=== PATIENT | female | born 2000 | race Caucasian/White ===

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

== ENCOUNTER 2019-01-28 18:37 | Emergency (ER) | payer SELFPAY ==
[2018-08-08 11:06] VITALS: BMI 15.3
[2019-01-28 18:38] VITALS: BP 107/76; PULSE 85; RESP 16; TEMP 36.6; O2SAT 97; BMI 15.6
--- NOTE | 2019-01-29 00:17 | ED.RN ---
PT'S NAME CALLED ON THREE DIFFERENT OCCASIONS. PT WAS NO PRESENT AND DID NOT SPEAK WITH ANY NURSING STAFF PRIOR TO LEAVING
== END 2019-01-28 19:45 | disposition left against medical advice (07) ==
LOC: ED 21:59
PROVIDERS: Emergency Provider Emergency Medicine
DX: R69 Illness, unspecified (principal); Z53.21 Procedure and treatment not carried out due to patient leaving prior to being seen by health care provider

== ENCOUNTER → 2022-06-19 | Outpatient (CLI) | payer MEDICAID, SELFPAY ==
[2022-06-23 22:06] LABS: Chlamydia By Nucleic Acid AMP Negative (Negative)
[2022-06-24 08:57] LABS: Gonococcus By Nucleic Acid AMP Negative (Negative)
[2022-06-26 21:02] LABS: HPV Reflexed? NOT INDICATED
== END | disposition home or self-care (01) ==
LOC: LABSPEC 13:27
PROVIDERS: Referring Provider Obstetrics & Gynecology; Visit Provider Obstetrics & Gynecology
DX: O09.90 Supervision of high risk pregnancy, unspecified, unspecified trimester (principal); Z3A.00 Weeks of gestation of pregnancy not specified; Z12.4 Encounter for screening for malignant neoplasm of cervix
CPT/HCPCS: 87086; 87088; 87491; 87591; 88175; G0145

== ENCOUNTER → 2022-07-16 | Outpatient (CLI) | payer MEDICAID, SELFPAY ==
[2022-07-16 15:08] LABS: Absolute Lymphocyte Count 1.57 X10^3/uL (0.83-4.51); Absolute Neutrophil Count 6.7 X10^3/uL (2.0-7.7); Basophil# 0.05 X10^3/uL; Basophil% 0.5 % (0-1); Eosinophil# 0.36 X10^3/uL; Eosinophils% 3.9 % (0-5); Hematocrit 40.3 % (37-47); Hemoglobin 13.5 g/dL (12.0-15.0); Lymphocyte # 1.57 X10^3/ul (0.83-4.51); Lymphocyte % 16.9 % (19-41); Mean Corp Hgb Conc 33.5 g/dL (32-36); Mean Corpuscular Hgb 31.7 pg (27.0-32.0); Mean Corpuscular Volume 94.6 fL (81-99); Mean Platelet Vol. 11.8 fl (6.2-12.0); Monocyte# 0.53 X10^3/uL; Monocyte% 5.7 % (0-10); NRBC Flagged by Analyzer 0 % (0-5); Neutrophil # 6.72 X10^3/uL (2.7-7.7); Neutrophil % 72.2 % (47-70); Platelet Count 209 K/mm3 (150-450); RBC Distribution Width CV 12.4 % (11.6-14.6); RBC Distribution Width SD 43.1 fl (35.1-43.9); Red Blood Count 4.26 M/mm3 (4.2-5.4); White Blood Count 9.3 K/mm3 (4.4-11.0)
[2022-07-16 15:51] LABS: NATERA MAILED SPECIMEN
[2022-07-16 17:26] LABS: HIV - WCH Non-Reactive (Nonreactive); Hepatitis B Surface Antigen Non-Reactive (Nonreactive); Hepatitis C Antibody Non-Reactive (Nonreactive); Rubella IgG Reactive (Nonreactive); Syphilis Antibodies Non-reactive
== END | disposition home or self-care (01) ==
LOC: PAVLAB 14:43
PROVIDERS: Referring Provider Obstetrics & Gynecology; Visit Provider Obstetrics & Gynecology
DX: O09.90 Supervision of high risk pregnancy, unspecified, unspecified trimester (principal); Z3A.00 Weeks of gestation of pregnancy not specified
CPT/HCPCS: 36415; 85025; 86703; 86762; 86780; 86803; 86850; 86900; 86901; 87340

== ENCOUNTER 2022-09-04 12:32 | Emergency (ER) | payer MEDICAID, SELFPAY ==
[2022-09-04 12:33] VITALS: BP 124/85; PULSE 114; RESP 18; TEMP 35.9; O2SAT 100; BMI 18.4
[2022-09-04 13:13] VITALS: BP 141/94; PULSE 90; RESP 16; O2SAT 99
--- NOTE | 2022-09-04 13:18 | EDS_ITS ---
HPI History of Present Illness Chief Complaint: Syncope Informant: patient Narrative Narrative: Patient presents after a syncopal episode at work. Patient states she stood up quickly. She started to feel lightheaded. She states this happens to her all the time. This happened before she was even . But today it progressed further. She states she started to lose her vision and hearing and then evidently passed out. She feels fine now. She does not have chest pain. She is not dyspneic now. She has not been coughing. She has been getting some muscle cramps in her legs and feet. She denies any known medical history. She is G1, P0 currently at 20 weeks . No bleeding discharge or pelvic or abdominal symptoms. She does have a history of what sounds like a congenital cardiomyopathy that her mother and sister have both had. Her sister is 31 and actually has a pacer ICD. Patient has played sports in high school and never had any symptoms. She has never had an echocardiogram or cardiac evaluation. She states for the last few days she has just been a little bit more tired than normal but no fevers chills or specific symptomatology. No recent travel, surgery, immobilization, personal or family history of DVT or PE. See family history as above. 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 Surgical History History of tonsillectomy Social History adopted: No household members: significant other and family housing: house current occupational status: employed current occupation: [employer] current occupational exposures/hazards: No pets and animals: Yes (BF doing litter box) pets and animals: cat(s) and dog(s) history of recent travel: No Smoking Status: Former smoker Electronic Cigarette Use: without nicotine alcohol intake: never substance use type: does not use well-balanced diet: daily or most days caffeine: No eating out: 1-3 times/week seatbelt use: always do you feel safe at home: Yes additional social history: -Sarbjit Father-Ezio BHARDWAJ ROS ED ROS Narrative A complete review of systems was performed and is negative except as documented in the history of present illness. Some specific details below. Constitutional: No recent fevers or chills. She has had some mild malaise EYE: No discharge, visual complaints, or pain. She started to have graying of vision prior to syncope but no other time. ENT: No difficulty swallowing. No swelling. No pain. No reflux symptoms. CV: No chest pain or palpitations. Respiratory: No shortness of breath coughing or hemoptysis. GI: No abdominal pain. No nausea vomiting diarrhea. No blood in stool. : No frequency dysuria or hematuria. Musculoskeletal: No recent trauma. No swelling. She does have some intermittent cramping of legs and feet. It is equal on both sides Skin: No rash. Nondiaphoretic. Neuro: No weakness or numbness. Endocrine: No polyuria or polydipsia. EXAM Physical Exam Narrative Exam Narrative: CONSTITUTIONAL: Patient is nontoxic in appearance. The patient looks comfortable. Work of breathing looks normal. HEENT: No notable trauma. Mucous membranes do look moist. No sinus tenderness. EYES: No conjunctival injection. No proptosis. NECK:No JVD. No stridor. CARDIOVASCULAR: Regular rate. Regular rhythm. No notable murmur. No JVD. Her rate is about 90 on the monitor appears to be normal sinus rhythm. RESPIRATORY: No respiratory distress. Breathing is unlabored. No wheezes. No rhonchi. No rales. No pain with a deep breath. No chest wall tenderness. GASTROINTESTINAL: Not distended. Bowel sounds are normal. No tenderness. No guarding. No rebound. Palpable uterus right at the umbilicus as expected for dates. It is not tender. GENITOURINARY: No tenderness over the bladder. No CVA tenderness. MUSCULOSKELETAL: Atraumatic. No peripheral edema. No cord. No tenderness along the deep venous system. No asymmetry. No distended veins. Very normal peripheral exam. NEUROLOGICAL: Patient is alert and appropriate. No focal deficit noted. SKIN: No noted rashes. No diaphoresis. PSYCHIATRIC: Patient is calm. Mood is appropriate. Const Vital Signs: 09/04/22 12:33 09/04/22 13:13 09/04/22 13:13 Temperature 96.7 F L Temperature Source Temporal Pulse Rate 114 H 90 Respiratory Rate 18 16 Respiratory Effort Normal Non-Labored Respiratory Pattern Normal Blood Pressure 124/85 H 141/94 H Blood Pressure Mean 98 109 Pulse Ox 100 99 Oxygen Delivery Method Room Air Room Air MDM MDM MDM Narrative Medical decision making narrative: Patient CBC shows nonspecific mild elevation of the white count at 11.4 which is actually typical for somebody at 20 weeks gestation. She is not anemic. Platelets are normal. Electrolytes show no marked abnormalities. No sign of significantly elevated glucose or kidney discharge function. Troponin is unmeasurable at less than 3. As the patient is asymptomatic, has a normal exam, normal EKG, normal blood work I think she can go home. I did discuss the case with her industrial painter, Dr. Castillo. We agreed that the patient likely needs follow-up. With possibly benefit from echocardiogram. Certainly return if this becomes a recurrent phenomenon. Lab Data Attestation: I reviewed the patient's lab results. Labs: Laboratory Results - last 24 hr 09/04/22 09/04/22 13:20 13:20 WBC 11.4 H RBC 4.10 L Hgb 13.5 Hct 39.0 MCV 95.1 MCH 32.9 H MCHC 34.6 RDW Std Deviation 45.2 H RDW Coeff of Quan 13.0 Plt Count 196 MPV 11.4 Immature Gran % (Auto) 1.800 H Neut % (Auto) 74.8 H Lymph % (Auto) 14.3 L [place] % (Auto) 5.2 Eos % (Auto) 3.3 Baso % (Auto) 0.6 Absolute Neuts (auto) 8.5 H Absolute Lymphs (auto) 1.63 Nucleated RBC % 0 Sodium 137 Potassium 3.9 Chloride 106 Carbon Dioxide 25.0 Anion Gap 6 BUN 8 Creatinine 0.48 L Estim Creat Clear Calc 149.32 Est GFR (MDRD) Af Amer 208 Est GFR (MDRD) Non-Af 172 BUN/Creatinine Ratio 16.8 Glucose 84 Calcium 8.9 Troponin I High Sens < 3 L EKG Initial EKG: Comments: My independent interpretation of the patient's EKG done for report of syncope shows a normal sinus rhythm with a rate of 93. No ectopy. No acute ST elevation or depression. No preexcitation. ID interval, QRS duration and QTc are all within normal limits. Management Discussion w/another healthcare provider: PCP Discharge Plan Triage Chief Complaint: Syncope Other Complaint: ED Provider: German Diaz Dx/Rx/DC Orders Clinical Impression: Syncope, Instructions: ED Fainting, Uncertain Cause Prescriptions: No Action albuterol sulfate 2.5 mg /3 mL (0.083 %) solution for nebulization 2.5 mg continuous nebulization ONCE Qty: 1 0RF DHA 200 mg capsule PO Primary Care Provider: Care Physician,No Primary Referrals: Carl Fletcher MD [Med Staff - Active Staff] - As soon as possible Mary Castillo MD [Med Staff - Active Staff] - Keep Emir appointment Care Physician,No Primary [Primary Care Provider] - Disposition Disposition: Home, Self Care
[2022-09-04] MEDS: 0.9% Normal Saline 1,000 ML 1000 ML IV (13:22)
--- NOTE | 2022-09-04 13:25 | NURSING ---
NO OLD EKGS
[2022-09-04 13:32] LABS: Absolute Lymphocyte Count 1.63 X10^3/uL (0.83-4.51); Absolute Neutrophil Count 8.5 X10^3/uL (2.0-7.7); Basophil# 0.07 X10^3/uL; Basophil% 0.6 % (0-1); Eosinophil# 0.38 X10^3/uL; Eosinophils% 3.3 % (0-5); Hemoglobin 13.5 g/dL (12.0-15.0); Lymphocyte # 1.63 X10^3/ul (0.83-4.51); Lymphocyte % 14.3 % (19-41); Mean Corp Hgb Conc 34.6 g/dL (32-36); Mean Corpuscular Hgb 32.9 pg (27.0-32.0); Mean Corpuscular Volume 95.1 fL (81-99); Mean Platelet Vol. 11.4 fl (6.2-12.0); Monocyte# 0.59 X10^3/uL; Monocyte% 5.2 % (0-10); NRBC Flagged by Analyzer 0 % (0-5); Neutrophil # 8.49 X10^3/uL (2.7-7.7); Neutrophil % 74.8 % (47-70); Platelet Count 196 K/mm3 (150-450); RBC Distribution Width SD 45.2 fl (35.1-43.9); White Blood Count 11.4 K/mm3 (4.4-11.0)
[2022-09-04 13:46] LABS: Anion Gap 6 (5-15); BUN 8 mg/dL (7-18); BUN/Creat Ratio 16.8 RATIO (10-20); Calcium,Total 8.9 mg/dL (8.5-10.1); Chloride 106 mmol/L (98-107); Creatinine, Serum 0.48 mg/dL (0.55-1.02); EST Glomerular Filtration Rate 172 mL/min (>60); Est Glom Filt Rate - Afr Amer 208 mL/min (>60); Estimated Creatinine Clearance 149.32 ml/min; Glucose 84 mg/dL (74-106); Potassium 3.9 mmol/L (3.5-5.1); Sodium Level 137 mmol/L (136-145); Troponin-I HS < 3 pg/mL (3.0-54.0)
== END 2022-09-04 15:08 | disposition home or self-care (01) ==
PROVIDERS: Emergency Provider Emergency Medicine; Visit Provider Emergency Medicine
DX: O99.891 Other specified diseases and conditions complicating pregnancy (principal); R55 Syncope and collapse; Z79.899 Other long term (current) drug therapy; Z87.891 Personal history of nicotine dependence; Z3A.20 20 weeks gestation of pregnancy
CPT/HCPCS: 80048; 84484; 85025; 93005; 96360; 96361; 99285; J7030; A4216

== ENCOUNTER → 2022-09-09 | Outpatient (CLI) | payer MEDICAID, SELFPAY | END | disposition home or self-care (01) | PROVIDERS: Referring Provider Advanced Practice Midwife; Visit Provider Advanced Practice Midwife | DX: Z36.9 Encounter for antenatal screening, unspecified (principal) | CPT/HCPCS: 36415 ==

== ENCOUNTER → 2022-10-28 | Outpatient (CLI) | payer MEDICAID, SELFPAY ==
[2022-10-28 10:51] LABS: Absolute Lymphocyte Count 1.35 X10^3/uL (0.83-4.51); Absolute Neutrophil Count 6.6 X10^3/uL (2.0-7.7); Basophil# 0.07 X10^3/uL; Basophil% 0.8 % (0-1); Eosinophil# 0.25 X10^3/uL; Eosinophils% 2.8 % (0-5); Hematocrit 37.7 % (37-47); Hemoglobin 12.7 g/dL (12.0-15.0); Lymphocyte # 1.35 X10^3/ul (0.83-4.51); Lymphocyte % 15.1 % (19-41); Mean Corp Hgb Conc 33.7 g/dL (32-36); Mean Corpuscular Hgb 32.1 pg (27.0-32.0); Mean Corpuscular Volume 95.2 fL (81-99); Mean Platelet Vol. 11.5 fl (6.2-12.0); Monocyte% 4.5 % (0-10); NRBC Flagged by Analyzer 0 % (0-5); Neutrophil # 6.64 X10^3/uL (2.7-7.7); Neutrophil % 74.2 % (47-70); Platelet Count 183 K/mm3 (150-450); RBC Distribution Width CV 12.1 % (11.6-14.6); RBC Distribution Width SD 42.5 fl (35.1-43.9); Red Blood Count 3.96 M/mm3 (4.2-5.4); White Blood Count 8.9 K/mm3 (4.4-11.0)
[2022-10-28 10:58] LABS: Glucose Challenge Gest 1H 50g 172 mg/dL (70-140)
[2022-10-28 11:32] LABS: HIV - WCH Non-Reactive (Nonreactive); Syphilis Antibodies Non-reactive
== END | disposition home or self-care (01) ==
LOC: PAVLAB 10:29
PROVIDERS: Advanced Practice Midwife; Referring Provider Obstetrics & Gynecology; Visit Provider Obstetrics & Gynecology
DX: O09.90 Supervision of high risk pregnancy, unspecified, unspecified trimester (principal); Z3A.00 Weeks of gestation of pregnancy not specified
CPT/HCPCS: 36415; 82950; 85025; 86703; 86780

== ENCOUNTER → 2022-11-04 | Outpatient (CLI) | payer MEDICAID, SELFPAY ==
[2022-11-04 10:52] LABS: Glucose GTT- Fasting 84 mg/dL (74-106)
[2022-11-04 11:34] LABS: Glucose GTT- 1 Hour 149 mg/dL (120-170)
[2022-11-04 12:24] LABS: Glucose GTT- 2 Hour 118 mg/dL (70-120)
[2022-11-04 13:53] LABS: Glucose GTT- 3 Hour 90 mg/dL (74-106)
== END | disposition home or self-care (01) ==
LOC: LAB 09:45
PROVIDERS: Referring Provider Nurse Practitioner Women's Health; Visit Provider Nurse Practitioner Women's Health
DX: Z13.1 Encounter for screening for diabetes mellitus (principal)
CPT/HCPCS: 36415; 82951; 82952

== ENCOUNTER 2022-12-26 17:09 | Outpatient (CLI) | payer MEDICAID, SELFPAY ==
[2022-12-26 17:23] VITALS: BP 127/82; PULSE 101; O2SAT 97
[2022-12-26 17:30] VITALS: TEMP 36.7
[2022-12-26 17:31] VITALS: BMI 20.5
[2022-12-26 17:38] LABS: Color, Urine Yellow (Yellow); Glucose, Dipstick Normal (Normal); Ketone-Dipstick Negative (Negative); Leukocyte Esterase-Dipstick 100 /ul (Negative); Nitrite-Dipstick Negative (Negative); Occult Blood-Urine Negative /ul (Negative); Protein-Dipstick Negative (Negative); Urine Bilirubin Dipstick Negative (Negative); Urine Clarity Sl. Cloudy (Clear); Urine Urobilinogen Normal (Normal); Urine pH 6.5 (5.0 - 8.0)
[2022-12-26 20:05] VITALS: TEMP 37.1
[2022-12-26 20:08] VITALS: BP 136/81; PULSE 85
--- NOTE | 2022-12-27 11:21 | OB.TRI.HP_ITS ---
HPI - General General Date of Admission: 12/26/22 Date of Service: 12/26/22 Chief Complaint: contractions HPI Narrative ANAYA HANNA, is a 22 F who presents at 36.1 with contractions since 130 that progressively became more uncomfortable. VE per nursing /-2. no lof/vb. good movement. some note of increased urinary frequency uncomplicated antentatal history Maternal Data Information NOAH Calculator Estimated Delivery Date Method Current WG Current Estimate 01/22/23 LMP (Certain) 36w 2d PFSH PFSH Medical History Migraines Home Medications albuterol sulfate 2.5 mg/3 mL (0.083 %) solution for nebulization 2.5 mg (3 mL) continuous nebulization ONCE #1 mL 06/21/20 [Clinic Last Taken Unknown] docosahexaenoic acid 200 mg capsule ( DHA) mg PO 06/12/22 [History Last Taken 12/25/22 21:30 200 mg] famotidine 20 mg tablet (Pepcid) 40 mg PO DAILY 12/26/22 [History Last Taken 12/25/22 21:30 40 mg] Allergy/AdvReac Type Severity Reaction Status Date / Time No Known Allergies Allergy Verified 12/26/22 17:29 Family History Mother Breast cancer, Onset Age: 36 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 Surgical History History of tonsillectomy Social History adopted: No household members: significant other and family housing: house current occupational status: employed current occupation: [employer]- [employer] current occupational exposures/hazards: No pets and animals: Yes (KATLIN doing litter box) pets and animals: cat(s) and dog(s) history of recent travel: No Smoking Status: Former smoker Electronic Cigarette Use: without nicotine alcohol intake: never substance use type: does not use well-balanced diet: daily or most days caffeine: No eating out: 1-3 times/week seatbelt use: always do you feel safe at home: Yes additional social history: KATLIN-Sarbjit Father-Ezio History 1 Elective abortions Hx Para Spontaneous abortions Hx # Term Pregnancies Ectopic pregnancies Hx # Pregnancies Multiple births # of living children Visit Details Expected Delivery Route/Plan Labor Preferences- CB/BF classes: encouraged labor support person: Sarbjit labor intervention preferences: [] pain management options preferred: epidural cut cord/dad catch: cord : yes PP control planned: discussed discussed possible routes of delivery and associated risks: [] special requests: [] Plans Covid status: unvacinated Flu vaccine: declines Tdap vaccine: declines Rhogam: na LARC form signed: yes Problem list reviewed and updated with the most current plan of care details and appropriate orders placed. Relevant counseling for the gestational age provided. Continue routine care and follow up unless otherwise noted in visit notes/problem list details OB Flowsheet Initial Weight: 104 lb Date -?-?-?-?-?-?-?-?-?--?-?-?- EGA Weight BP Urine Prot -?-?-?-?-?-?-?-?-?-?-?-?- Glucose FHR FuHt Pres Dilation -?-?-?-?-?-?-?-?-?-?-?-?- Effaced St Visit Note 06/19/22 -?-?-?-?-?-?-?-?-?-?-?-?- 9w 0d 104 lb 6 oz (+6 oz) 134/78 -?-?-?-?-?-?-?-?-?-?-?-?- 170 -?-?-?-?-?-?-?-?-?-?-?-?- SM- CRL 1.85 cm cons with LMP 07/16/22 -?-?-?-?-?-?-?-?-?-?-?-?- 12w 6d 106 lb 6 oz (+2 lb 6 oz) 114/75 Negative -?-?-?-?-?-?-?-?-?-?-?-?- Negative 168 -?-?-?-?-?-?-?-?-?-?-?-?- MH-No VB. Br US confirm live IUP. PN labs today 08/13/22 -?-?-?-?-?-?-?-?-?-?-?-?- 16w 6d 112 lb 2 oz (+8 lb 2 oz) 126/72 Negative -?-?-?-?-?-?-?-?-?-?-?-?- Negative 154 -?-?-?-?-?-?-?-?-?-?-?-?- JV- no lof, vagi nal bleeding, or cramping. no complaints. 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 no lof/ vb/ctx. anatomy reviewed. AFP ordered. 10/14/22 -?-?-?-?-?-?-?-?-?-?-?-?- 25w 5d 121 lb 4 oz (+17 lb 4 oz) 115/75 Negative -?-?-?-?-?-?-?-?-?-?-?-?- Negative 150 26 -?-?-?-?-?-?-?-?-?-?-?-?- KW- +FM. no lof/ vb/ctx. Pepcid ordered for acid reflux. 28 week labs ordered. 10/28/22 -?-?-?-?-?-?-?-?-?-?-?-?- 27w 5d 123 lb 8 oz (+19 lb 8 oz) 114/72 Negative -?-?-?-?-?-?-?-?-?-?-?-?- Negative 158 27 -?-?-?-?-?-?-?-?-?-?-?-?- MH-Good FM. No V B, LOF. Good FM. Pepcid helped. 28 wk labs, [facility] 11/10/22 -?-?-?-?-?-?-?-?-?-?-?-?- 29w 4d 125 lb 2 oz (+21 lb 2 oz) 114/82 Negative -?-?-?-?-?-?-?-?-?-?-?-?- Negative 143 29 -?-?-?-?-?-?-?-?-?-?-?-?- LC- no vb/ctx/lo f. good fm. passed 3 hour glucose.declines tdap. 11/24/22 -?-?-?-?-?-?-?-?-?-?-?-?- 31w 4d 129 lb (+25 lb) 132/60 -?-?-?-?-?-?-?-?-?-?-?-?- 150 31 Cephalic -?-?-?-?-?-?-?-?-?-?-?-?- SM- no vb lof go od fm no reuglar ctx 12/09/22 -?-?-?-?-?-?-?-?-?-?-?-?- 33w 5d 127 lb 8 oz (+23 lb 8 oz) 114/82 -?-?-?-?-?-?-?-?-?-?-?-?- 148 33 -?-?-?-?-?-?-?-?-?-?-?-?- MH-No VB, LOF. G ood FM. Occa BH CTX. Denies concerns 12/23/22 -?-?-?-?-?-?-?-?-?-?-?-?- 35w 5d 131 lb 2 oz (+27 lb 2 oz) 112/75 Negative -?-?-?-?-?-?-?-?-?-?-?-?- Negative 140 34 -?-?-?-?-?-?-?--?-?-?-?-?- JV- no lof, vagi nal bleeding, or dec fm. plan gbs next visit. NST FHR Rate Baby A Baseline: 145 Variability:: Moderate Accelerations:: 15 x 15 Decelerations:: None NST Reactive:: Yes FHR Category:: Category I Uterine Activity:: irregular Assessment & Plan (1) False labor before 37 completed weeks of gestation: COMMENT: unchanged cervical exam, pt d/c'd home PLAN: Plan Patient presents for triage evaluation secondary to contractions/increased urinary frequency. urine dip overall normal and non-contributory to symptoms. ctx decreased with hydration FHT: Moderate variability reactive no decelerations category I tracing [place]: irregular Contractions with now less intensity Assessment and plan: Reactive NST, reassuring maternal and status patient discharged to home to follow-up in office or sooner if ctx worsen/return. See problem list details for additional plan information. Charges/Coding Procedures Urinary/Genital [id number]: 83672-37 non-stress test Interp
== END 2022-12-26 20:20 | disposition home or self-care (01) ==
LOC: WPOUT 17:11 → WP 17:12
PROVIDERS: Referring Provider Registered Nurse; Visit Provider Registered Nurse
DX: O47.03 False labor before 37 completed weeks of gestation, third trimester (principal); Z3A.36 36 weeks gestation of pregnancy
CPT/HCPCS: 59025; 59050; 81002; 99221; G0378

== ENCOUNTER → 2022-12-29 | Outpatient (CLI) | payer MEDICAID, SELFPAY | END | disposition home or self-care (01) | LOC: LAB 16:51 → LABSPEC 16:54 | PROVIDERS: Referring Provider Obstetrics & Gynecology; Visit Provider Obstetrics & Gynecology | DX: O09.90 Supervision of high risk pregnancy, unspecified, unspecified trimester (principal); Z3A.00 Weeks of gestation of pregnancy not specified | CPT/HCPCS: 87081 ==

== ENCOUNTER → 2023-01-08 | Outpatient (CLI) | payer MEDICAID, SELFPAY ==
[2023-01-08 15:00] LABS: ROM Internal Control Test YES-OK TO RESULT pt. (Internal QC); ROM Patient Test Negative (Negative); Record Kit Lot#, ROM+ K1409
== END | disposition home or self-care (01) ==
PROVIDERS: Referring Provider Advanced Practice Midwife; Visit Provider Advanced Practice Midwife
DX: O26.899 Other specified pregnancy related conditions, unspecified trimester (principal); O99.891 Other specified diseases and conditions complicating pregnancy; N89.8 Other specified noninflammatory disorders of vagina; Z3A.00 Weeks of gestation of pregnancy not specified
CPT/HCPCS: 84112

== ENCOUNTER 2023-01-14 03:25 | Outpatient (CLI) | payer MEDICAID, SELFPAY ==
[2023-01-14 03:30] VITALS: BMI 20.9
[2023-01-14 03:47] VITALS: BP 130/74; PULSE 88; PULSE 96; TEMP 36.6; O2SAT 97
--- NOTE | 2023-01-14 06:04 | OB.TRI.PN ---
Progress Notes Date of Service: 01/14/23 Progress Note: Patient presents for triage evaluation secondary to uterine contractions FHT: 140 Moderate variability reactive no decelerations category I tracing [place]: irregular Contractions Assessment and plan: no cervical change, Reactive NST, reassuring maternal and status patient discharged to home to follow-up at next appointment. See problem list details for additional plan information. Charges/Coding Multi Select Codes Urinary/Genital Urinary/Genital CPT Codes: 10705-61 non-stress test Interp Assessment & Plan (1) Uterine contractions: COMMENT: unchanged cervical exam. D/C'ed home (2) Vaginal discharge during : (3) Tetanus, diphtheria, and acellular pertussis (Tdap) vaccination declined: (4) Abnormal glucose complicating childbirth: COMMENT: 3 hr GTT normal (5) Acid reflux: QUALIFIERS: Esophagitis presence: without esophagitis Qualified Code(s): K21.9 - Gastro-esophageal reflux disease without esophagitis COMMENT: mata (6) Supervision of high risk , antepartum: COMMENT: PRR NOAH: 01/22/23, boy, Ulisesjhonnyerasmo Renée (7) : COMMENT: GBS neg, afp neg, anatomy nl, NIPT low risk, carrier scrn neg. 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
== END 2023-01-14 06:05 | disposition home or self-care (01) ==
LOC: WPOUT 03:26 → WP 03:26
PROVIDERS: Referring Provider Advanced Practice Midwife; Visit Provider Advanced Practice Midwife
DX: O47.9 False labor, unspecified (principal); O99.619 Diseases of the digestive system complicating pregnancy, unspecified trimester; O99.810 Abnormal glucose complicating pregnancy; O99.891 Other specified diseases and conditions complicating pregnancy; K21.9 Gastro-esophageal reflux disease without esophagitis; N89.8 Other specified noninflammatory disorders of vagina
CPT/HCPCS: 59025; 59050 ×2; G0378 ×2; 99221

== ENCOUNTER 2023-01-16 11:30 | Inpatient (IN) | payer MEDICAID, SELFPAY ==
[2023-01-16] VITALS (41 sets, daily range): BP systolic 115–146; BP diastolic 59–89; PULSE 92–131; TEMP 36.7–37.4; O2SAT 97–100; BMI 20.8
--- NOTE | 2023-01-16 09:02 | US_ITS ---
STUDY: SECOND AND THIRD TRIMESTER OBSTETRICAL ULTRASOUND - LIMITED REASON FOR EXAM: Female, 22 years old small for gestational age LMP: Unknown. PRIOR ULTRASOUND: None. TECHNIQUE: Transabdominal TECHNICAL QUALITY: Adequate. FINDINGS: There is a single intrauterine fetus. The fetus is in a cephalic presentation. There is demonstrated cardiac activity with a heart rate of 136 bpm. There is decreased amniotic fluid volume consistent with oligohydramnios. The largest amniotic fluid pocket measures 2.9 cm. The amniotic fluid index (JOSE) is 6.8 cm. The placenta is fundal in location. There are Grade 3 placental changes. The cervix is not visualized on this study. BIOMETRY: BPD: 9.69 cm: 39 weeks, 4 days HC: 33.99 cm: 39 weeks, 1 days AC: 34.04 cm: 38 weeks, 0 days FL: 7.12 cm: 36 weeks, 3 days age by current US: 38 weeks, 3 days. NOAH by current US: January 27, 2023. Estimated weight: 3375 grams, +/- 506 grams, 42 percentile. US/OB Limited With Biometrics IMPRESSION: 1. Slightly low amount of amniotic fluid with an JOSE of 6.8 cm Electronically Signed: Phil Butterfield MD at 13:39 EDT ,
[2023-01-16] MEDS: Lactated Ringers 1,000 ML 50 ML IV (12:15)
--- NOTE | 2023-01-16 12:24 | HP.PCM.OB_ITS ---
HPI - General General Date of Admission: 01/16/23 Date of Service: 01/16/23 HPI Narrative ANAYA HANNA, is a 22 F at 39.1 weeks who presents to for IOL from the office for oligohydramnios. Formal US done today after appt for low fundal height and JOSE 4.8. Maternal Data Information NOAH Calculator Estimated Delivery Date Method Current WG Current Estimate 01/22/23 LMP (Certain) 39w 1d Final NOAH: 01/22/23 Final NOAH Source: US >20 weeks Gestational age: 39.1 [facility] Medical History (Updated 01/16/23 @ 10:58 by Nicolasa Tran CNM) Migraines Home Medications albuterol sulfate 2.5 mg/3 mL (0.083 %) solution for nebulization 2.5 mg (3 mL) continuous nebulization ONCE #1 mL 06/21/20 [Clinic Last Taken Unknown] docosahexaenoic acid 200 mg capsule ( DHA) mg PO 06/12/22 [History Last Taken 01/13/23] famotidine 20 mg tablet (Pepcid) 40 mg PO DAILY 12/26/22 [History Last Taken 01/13/23 23:00] Allergy/AdvReac Type Severity Reaction Status Date / Time No Known Allergies Allergy Verified 01/13/23 09:28 Family History Mother Breast cancer, Onset Age: 36 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 Surgical History History of tonsillectomy Social History adopted: No household members: significant other and family housing: house current occupational status: employed current occupation: [employer] current occupational exposures/hazards: No pets and animals: Yes ( doing litter box) pets and animals: cat(s) and dog(s) history of recent travel: No Smoking Status: Former smoker Electronic Cigarette Use: without nicotine alcohol intake: never substance use type: does not use well-balanced diet: daily or most days caffeine: No eating out: 1-3 times/week seatbelt use: always do you feel safe at home: Yes additional social history: -Sarbjit Father-Ezio History 1 Elective abortions Hx Para Spontaneous abortions Hx # Term Pregnancies Ectopic pregnancies Hx # Pregnancies Multiple births # of living children Visit Details Expected Delivery Route/Plan Labor Preferences- CB/BF classes: encouraged labor support person: Sarbjit labor intervention preferences: [] pain management options preferred: epidural cut cord/dad catch: cord : yes PP control planned: discussed discussed possible routes of delivery and associated risks: [] special requests: [] Plans Covid status: unvacinated Flu vaccine: declines Tdap vaccine: declines Rhogam: na LARC form signed: yes Problem list reviewed and updated with the most current plan of care details and appropriate orders placed. Relevant counseling for the gestational age provided. Continue routine care and follow up unless otherwise noted in visit notes/problem list details OB Flowsheet Initial Weight: 104 lb Date -?-?-?-?-?-?-?-?-?-?-?-?- EGA Weight BP Urine Prot -?-?-?-?-?-?-?-?-?-?-?-?- Glucose FHR FuHt Pres Dilation -?-?-?-?-?-?-?-?-?-?-?-?- Effaced St Visit Note 06/19/22 -?-?-?-?-?-?-?-?-?-?-?-?- 9w 0d 104 lb 6 oz (+6 oz) 134/78 -?-?-?-?-?-?-?-?--?-?-?-?- 170 -?-?-?-?-?-?-?-?-?-?-?-?- SM- CRL 1.85 cm cons with LMP 07/16/22 -?-?-?-?-?-?-?-?-?-?-?-?- 12w 6d 106 lb 6 oz (+2 lb 6 oz) 114/75 Negative -?-?-?-?-?-?-?-?-?-?-?-?- Negative 168 -?-?-?-?-?-?-?-?-?-?-?-?- MH-No VB. Br US confirm live IUP. PN labs today 08/13/22 -?-?-?-?-?-?-?-?-?-?-?-?- 16w 6d 112 lb 2 oz (+8 lb 2 oz) 126/72 Negative -?-?-?-?-?-?-?-?-?-?-?-?- Negative 154 -?-?-?-?-?-?-?-?-?-?-?-?- JV- no lof, vagi nal bleeding, or cramping. no complaints. 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 no lof/ vb/ctx. anatomy reviewed. AFP ordered. 10/14/22 -?-?-?-?-?-?-?-?-?-?-?-?- 25w 5d 121 lb 4 oz (+17 lb 4 oz) 115/75 Negative -?-?-?-?-?-?-?-?-?-?-?-?- Negative 150 26 -?-?-?-?-?-?-?-?-?-?-?-?- KW- +FM. no lof/ vb/ctx. Pepcid ordered for acid reflux. 28 week labs ordered. 10/28/22 -?-?-?-?-?-?--?-?-?-?-?-?- 27w 5d 123 lb 8 oz (+19 lb 8 oz) 114/72 Negative -?-?-?-?-?-?-?-?-?-?-?-?- Negative 158 27 -?-?-?-?-?-?-?-?-?-?-?-?- MH-Good FM. No V B, LOF. Good FM. Pepcid helped. 28 wk labs, [facility] 11/10/22 -?-?-?-?-?-?-?-?-?-?-?-?- 29w 4d 125 lb 2 oz (+21 lb 2 oz) 114/82 Negative -?-?-?-?-?-?-?-?-?-?-?-?- Negative 143 29 -?-?-?-?-?-?-?-?-?-?-?-?- LC- no vb/ctx/lo f. good fm. passed 3 hour glucose.declines tdap. 11/24/22 -?-?-?-?-?-?-?-?-?-?-?-?- 31w 4d 129 lb (+25 lb) 132/60 -?-?-?-?-?-?-?-?-?-?-?-?- 150 31 Cephalic -?-?-?-?-?-?-?-?-?-?-?-?- SM- no vb lof go od fm no reuglar ctx 12/09/22 -?-?-?-?-?-?-?-?-?-?-?-?- 33w 5d 127 lb 8 oz (+23 lb 8 oz) 114/82 -?-?-?-?-?-?-?-?-?-?-?-?- 148 33 -?-?-?-?-?-?-?-?-?-?-?-?- MH-No VB, LOF. G ood FM. Occa BH CTX. Denies concerns 12/23/22 -?-?-?-?-?-?-?-?-?-?-?-?- 35w 5d 131 lb 2 oz (+27 lb 2 oz) 112/75 Negative -?-?-?-?-?-?-?-?-?-?-?-?- Negative 140 34 -?-?-?-?-?-?-?-?-?-?-?-?- JV- no lof, vagi nal bleeding, or dec fm. plan gbs next visit. 12/29/22 -?-?-?-?-?-?-?-?-?-?-?-?- 36w 4d 133 lb (+29 lb) 124/83 Negative -?-?-?-?-?-?-?-?-?-?-?-?- Negative 155 35 Cephalic 2 -?-?-?-?-?-?-?-?-?-?-?-?- 80 -1 JV- no lof , vaginal bleeding, or dec fm. 01/08/23 -?-?-?-?-?-?-?-?-?-?-?-?- 38w 0d 132 lb 2 oz (+28 lb 2 oz) 131/88 Negative -?-?-?-?-?-?-?-?-?-?-?-?- Negative 155 34 Cephalic 2 -?-?-?-?-?-?-?-?-?-?-?-?- 90 -1 KW-no vb. reports possible ROM 3 days ago, clear fluid, and irregular contractions. ROM sent and SM scanned- JOSE 10. 01/13/23 -?-?-?-?-?-?-?-?-?-?--?-?- 38w 5d 133 lb 2 oz (+29 lb 2 oz) 109/75 Negative -?-?-?-?-?-?-?-?-?-?-?-?- Negative 135 35 Cephalic 3 -?-?-?-?-?-?-?-?--?-?-?-?- 90 -1 kw-no vb/l of/regular contractions. good fm. doing well. 01/16/23 -?-?-?-?-?-?-?-?-?-?-?-?- 39w 1d 135 lb (+31 lb) 113/76 Negative -?-?-?-?-?-?-?-?-?-?-?-?- Negative 150 35 Cephalic 3 -?-?-?-?-?-?-?-?-?-?-?-?- 90 0 KW-no vb/l of/regular ctx. good fm. membrane sweep today. Growth US. NST FHR Rate Baby A Baseline: 145 Variability:: Moderate Accelerations:: 15 x 15 Decelerations:: None NST Reactive:: Yes FHR Category:: Category I Uterine Activity:: irregular ROS Constitutional Constitutional: Denies change in weight, fatigue, fever(s), headache(s), poor a ppetite or weakness Eyes Eyes: Denies blurry vision, change in vision, floaters, seeing flashes or spots in vision ENT HEENT: Denies dizziness, headache(s), loss taste/smell or sore throat Cardiovascular Cardiovascular: Denies chest pain, dizziness, dyspnea, irregular heart rhythm, lightheadedness, palpitations or rapid heart rate Respiratory/Chest Respiratory/Chest: Denies change in mental status, chest tightness, cough, dyspnea or breast pain Gastrointestinal Gastrointestinal: Denies anorexia, chewing difficulty, constipation, diarrhea or weight changes Genitourinary Genitourinary: Denies difficulty urinating, dysuria, flank pain, genital pain, urinary frequency or urinary urgency Musculoskeletal Musculoskeletal: Denies back pain, difficulty walking, extremity pain, joint pain, muscle cramps or muscle weakness Integumentary Integumentary: Denies lesions or unusual bruising Neurologic Neurologic: Denies abnormal movements, abnormal speech, dizziness, numbness, seizure-like activity, syncope or weakness Psychiatric Psychiatric: Denies behavioral changes, change in appetite, confusion, depressi on, homicidal ideation, suicidal ideation or suicidal thoughts Endocrine Endocrinology: Denies excessive sweating, polydipsia or polyuria Hematologic/Lymphatic Hematologic/Lymphatic: Denies anemia Allergic/Immunologic Allergic/Immunologic: Denies itchy eyes, lip swelling, throat swelling, tongue swelling or wheezing Vital Signs Vital Signs Vital Signs: 01/16/23 11:48 01/16/23 11:48 01/16/23 11:48 Pulse Rate 127 H Blood Pressure 132/89 H BP Systolic 132 BP Diastolic 89 Pulse Ox 98 01/16/23 11:53 01/16/23 11:53 01/16/23 11:58 Pulse Rate 117 H 117 H Blood Pressure BP Systolic BP Diastolic Pulse Ox 97 01/16/23 11:58 01/16/23 12:03 01/16/23 12:03 Pulse Rate 120 H Blood Pressure BP Systolic BP Diastolic Pulse Ox 97 97 01/16/23 12:08 01/16/23 12:08 Pulse Rate 116 H Blood Pressure BP Systolic BP Diastolic Pulse Ox 98 Physical Exam Const alert, oriented x3 and no apparent distress General Appearance: cooperative Orientation / Consciousness: awake HEENT normocephalic Neck full ROM Lymph Lymphatic: no lymphadenopathy noted Chest inspection of chest normal Resp normal respiratory effort and normal air movement Effort and Inspection: able to speak in complete sentences and symmetric chest movement GI soft to palpation and non-tender Inspection: gravid Palpation: soft; Negative for tender external exam normal Back/Spine normal to inspection Extremity normal to inspection and full ROM Skin no rashes or lesions noted Psych mental status grossly normal Appearance: grossly normal Speech: normal speech Labs Labs Labs: Blood Type O POSITIVE Antibody Screen NEGATIVE Hct 37.7 % (37-47) Hgb 12.7 g/dL (12.0-15.0) Obstetrics Ultrasound Syphilis Total Ab Non-reactive Rubella IgG Antibody Reactive (Nonreactive) Hep Bs Antigen Non-Reactive (Nonreactive) Hepatitis C Antibody Non-Reactive (Nonreactive) Chlamydia DNA (MARISELA) Negative (Negative) N.gonorrhoeae DNA (MARISELA) Negative (Negative) HIV 1&2 Antibody Non-Reactive (Nonreactive) Glucose 1 Hr 50 gm 172 mg/dL (70-140) H Miscellaneous Test Assessment & Plan (1) Oligohydramnios: COMMENT: to for IOL PLAN: Patient presents IOL, plan management for with pitocin/AROM. Pain management: plans epidural. GBS negative. Management of any complications: oligohydramnios I have reviewed the [facility] and made any clinically relevant updates. (2) Uterine size date discrepancy : COMMENT: growth US-42% (3) Uterine contractions: COMMENT: unchanged cervical exam. D/C'ed home (4) Vaginal discharge during : (5) False labor before 37 completed weeks of gestation: COMMENT: unchanged cervical exam, pt d/c'd home (6) Tetanus, diphtheria, and acellular pertussis (Tdap) vaccination declined: (7) Abnormal glucose complicating childbirth: COMMENT: 3 hr GTT normal (8) Acid reflux: QUALIFIERS: Esophagitis presence: without esophagitis Qualified Code(s): K21.9 - Gastro-esophageal reflux disease without esophagitis COMMENT: pepciaarti (9) Supervision of high risk , antepartum: COMMENT: PRR NOAH: 01/22/23, Lyndsey metz (10) : QUALIFIERS: Weeks of gestation: 39 weeks Qualified Code(s): Z3A.39 - 39 weeks gestation of COMMENT: GBS neg, afp neg, anatomy nl, NIPT low risk, carrier scrn neg. 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
[2023-01-16 12:36] LABS: Absolute Lymphocyte Count 1.62 X10^3/uL (0.83-4.51); Absolute Neutrophil Count 11.2 X10^3/uL (2.0-7.7); Basophil# 0.08 X10^3/uL; Basophil% 0.6 % (0-1); Eosinophils% 1.4 % (0-5); Hematocrit 39.4 % (37-47); Lymphocyte # 1.62 X10^3/ul (0.83-4.51); Lymphocyte % 11.7 % (19-41); Mean Platelet Vol. 12.1 fl (6.2-12.0); Monocyte# 0.51 X10^3/uL; Monocyte% 3.7 % (0-10); NRBC Flagged by Analyzer 0 % (0-5); Neutrophil # 11.18 X10^3/uL (2.7-7.7); Neutrophil % 80.4 % (47-70); Platelet Count 205 K/mm3 (150-450); RBC Distribution Width CV 13.6 % (11.6-14.6); RBC Distribution Width SD 44.7 fl (35.1-43.9); Red Blood Count 4.19 M/mm3 (4.2-5.4); White Blood Count 13.9 K/mm3 (4.4-11.0)
[2023-01-16] MEDS: Oxytocin 15 Units/NS 250ml 15 UNITS/250 ML IV.SOLN 2 UNITS IV (12:52)
[2023-01-16 13:24] LABS: Syphilis Antibodies Non-reactive
[2023-01-16] MEDS: LACTATED RINGERS 500 ML 999 ML IV (16:46)
[2023-01-16] MEDS: fentaNYL-bupivacaine (epidural) 100 ML BAG EPIDURAL (17:55)
--- NOTE | 2023-01-16 18:52 | PN.OBGYN_ITS ---
Subjective Subjective Comfortable with epidural current tracing: FHT: 130 Moderate variability reactive no decelerations category I tracing [place]: 1-3 minute Contractions AROM 1835 blood tinged SVE: /0 reviewed tracing abnormalities since last note: A/P: continue to titrate pitocin according to policy continue position changes epidural per anesthesia Anticipate Dr Lazaro agrees with POC. Objective Data Objective Data Vital Signs: Vital Signs Temp Pulse BP Pulse Ox 98.4 F 110 H 125/65 H 100 01/16/23 16:27 01/16/23 18:10 01/16/23 18:10 01/16/23 17:59 Weight: 133 lb 2 oz Body Mass Index (BMI) 20.8 Intake & Output: Intake and Output for Last 24 Hours 01/14/23 01/15/23 01/16/23 23:59 23:59 23:59 Intake Total 44.20 / 44.20 Output Total 200 / 200 Balance -155.80 / -155.80 Lab / Micro Data 01/16/23 12:15 Labs: Laboratory Results - last 24 hr 01/16/23 12:15: WBC 13.9 H, RBC 4.19 L, Hgb 13.0, Hct 39.4, MCV 94.0, MCH 31.0, MCHC 33.0, RDW Std Deviation 44.7 H, RDW Coeff of Quan 13.6, Plt Count 205, MPV 12.1 H, Immature Gran % (Auto) 2.200 H, Neut % (Auto) 80.4 H, Lymph % (Auto) 11.7 L, [place] % (Auto) 3.7, Eos % (Auto) 1.4, Baso % (Auto) 0.6, Absolute Neuts (auto) 11.2 H, Absolute Lymphs (auto) 1.62, Nucleated RBC % 0, Syphilis Total Ab Non-reactive, Blood Type O POSITIVE, Antibody Screen NEGATIVE Assessment & Plan (1) Oligohydramnios: COMMENT: to WP for IOL (2) Uterine size date discrepancy : COMMENT: growth US-42% (3) Abnormal glucose complicating childbirth: COMMENT: 3 hr GTT normal (4) Supervision of high risk , antepartum: COMMENT: PRR NOAH: 01/22/23, Lyndsey metz (5) : QUALIFIERS: Weeks of gestation: 39 weeks Qualified Code(s): Z3A.39 - 39 weeks gestation of COMMENT: GBS neg, afp neg, anatomy nl, NIPT low risk, carrier scrn neg. 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
--- NOTE | 2023-01-16 18:58 | PN.OBGYN_ITS ---
Subjective Subjective [Coping well with contractions] [comfortable with epidural] current tracing: FHT: [] Moderate variability reactive no decelerations category I tracing [place]: [] Contractions Membranes: SVE: reviewed tracing abnormalities since last note: [ ] A/P: Continue with position changes Titrate pitocin per protocol Epidural per anesthesia [PCN] for GBS prophylaxis Anticipate [Anna] [Iveth] aware of plan and agrees with plan of care Objective Data Objective Data Vital Signs: Vital Signs Temp Pulse BP Pulse Ox 98.4 F 110 H 125/65 H 100 01/16/23 16:27 01/16/23 18:10 01/16/23 18:10 01/16/23 17:59 Weight: 133 lb 2 oz Body Mass Index (BMI) 20.8 Intake & Output: Intake and Output for Last 24 Hours 01/14/23 01/15/23 01/16/23 23:59 23:59 23:59 Intake Total 44.20 / 44.20 Output Total 200 / 200 Balance -155.80 / -155.80 Lab / Micro Data 01/16/23 12:15 Labs: Laboratory Results - last 24 hr 01/16/23 12:15: WBC 13.9 H, RBC 4.19 L, Hgb 13.0, Hct 39.4, MCV 94.0, MCH 31.0, MCHC 33.0, RDW Std Deviation 44.7 H, RDW Coeff of Quan 13.6, Plt Count 205, MPV 12.1 H, Immature Gran % (Auto) 2.200 H, Neut % (Auto) 80.4 H, Lymph % (Auto) 11.7 L, [place] % (Auto) 3.7, Eos % (Auto) 1.4, Baso % (Auto) 0.6, Absolute Neuts (auto) 11.2 H, Absolute Lymphs (auto) 1.62, Nucleated RBC % 0, Syphilis Total Ab Non-reactive, Blood Type O POSITIVE, Antibody Screen NEGATIVE
--- NOTE | 2023-01-16 22:04 | OP.PCM_ITS ---
Assessment & Plan (1) Vaginal delivery: COMMENT: KW IOL oligo 39.1 Boy (2) Oligohydramnios: COMMENT: to WP for IOL (3) Uterine size date discrepancy : COMMENT: growth US-42% (4) Tetanus, diphtheria, and acellular pertussis (Tdap) vaccination declined: (5) Abnormal glucose complicating childbirth: COMMENT: 3 hr GTT normal (6) Supervision of high risk , antepartum: COMMENT: PRR NOAH: 01/22/23, Lyndsey metz Renée (7) : QUALIFIERS: Weeks of gestation: 39 weeks Qualified Code(s): Z3A.39 - 39 weeks gestation of COMMENT: GBS neg, afp neg, anatomy nl, NIPT low risk, carrier scrn neg. 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 Delivered the head in ISIS presentation. The head was delivered atraumatically and no nuchal cord was identified. The anterior and posterior shoulders delivered without complication followed by the rest of the and the was placed on the maternal abdomen. Delayed cord clamping was employed for approximately 3 minutes. Cord was clamped and cut and gentle traction was applied to the cord and the placenta delivered spontaneously. Immediately following, it was noted to be intact with a 3 vessel cord. The perineum and vagina were inspected and noted to have a first degree laceration which was repaired with 3-0 Vicryl in the usual fashion. EBL was 150cc. Patient and tolerated delivery well. Apgars 8/9. Dr Young notified of vaginal delivery and orders reviewed. Physician agrees with current plan of care. 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 Type of Anesthesia: Epidural Estimated Blood Loss: 100 Time of Delivery: 21:37 Findings Amniotic Membrane Rupture Type: Artificial Amniotic Fluid Description: Clear Placental Delivery Description: Spontaneous Placenta Disposition: [facility] Cord Vessel Description: 3 Vessels Cord Entanglement: None A Gender: Male (1 minute): 8 (5 minute): 9 Delayed Cord Clamping: Yes Post Vaginal Delivery Medications Given After Delivery: IV Pitocin Episiotomy Description: None Laceration: 1st degree Multi Select Codes Urinary/Genital Urinary/Genital CPT Codes: 01651 Vaginal Delivery+ PP Care([facility])
[2023-01-16] MEDS: Oxytocin 15 Units/NS 250ml 15 UNITS/250 ML IV.SOLN 83 UNITS IV (22:40)
[2023-01-17] VITALS (7 sets, daily range): BP systolic 105–131; BP diastolic 64–84; PULSE 92–122; RESP 16–18; TEMP 36.2–37; O2SAT 96–97
--- NOTE | 2023-01-17 04:16 | PN.OBGYN_ITS ---
Subjective Subjective Patient doing well without complaints. Tolerating PO. Ambulating and voiding without difficulty. Feeding well. Denies chest pain, shortness of breath, calf pain/swelling, fevers, chills, lightheadedness. Objective Data Objective Data Vital Signs: Vital Signs Temp Pulse Resp BP Pulse Ox O2 Del Method 98.6 F 118 H 18 121/76 H 97 Room Air 01/17/23 03:35 01/17/23 03:35 01/17/23 03:35 01/17/23 03:35 01/17/23 03:35 01/17/23 03:35 Oxygen Delivery Method Room Air Weight: 133 lb 2 oz Body Mass Index (BMI) 20.8 Intake & Output: Intake and Output for Last 24 Hours 01/15/23 01/16/23 01/17/23 23:59 23:59 23:59 Intake Total 1478.41 / 1478.41 250 / 250 Output Total 350 / 350 400 / 400 Balance 1128.41 / 1128.41 -150 / -150 Lab / Micro Data Attestation: I reviewed the patient's lab results. 01/16/23 12:15 Labs: Laboratory Results - last 24 hr 01/16/23 12:15: WBC 13.9 H, RBC 4.19 L, Hgb 13.0, Hct 39.4, MCV 94.0, MCH 31.0, MCHC 33.0, RDW Std Deviation 44.7 H, RDW Coeff of Quan 13.6, Plt Count 205, MPV 12.1 H, Immature Gran % (Auto) 2.200 H, Neut % (Auto) 80.4 H, Lymph % (Auto) 11.7 L, [place] % (Auto) 3.7, Eos % (Auto) 1.4, Baso % (Auto) 0.6, Absolute Neuts (auto) 11.2 H, Absolute Lymphs (auto) 1.62, Nucleated RBC % 0, Syphilis Total Ab Non-reactive, Blood Type O POSITIVE, Antibody Screen NEGATIVE ROS Constitutional Constitutional: Reports systems reviewed and no addt'l complaints, except as documented; Denies anorexia or headache(s) Cardiovascular Cardiovascular: Reports systems reviewed and no addt'l complaints, except as documented; Denies dizziness, dyspnea, nausea or tachypnea Respiratory/Chest Respiratory/Chest: Reports systems reviewed and no addt'l complaints, except as documented; Denies cough, dyspnea, shortness of breath at rest or tachypnea Gastrointestinal Gastrointestinal: Reports systems reviewed and no addt'l complaints, except as documented; Denies abdominal pain, constipation or nausea Genitourinary Genitourinary: Reports systems reviewed and no addt'l complaints, except as documented; Denies burning urination, difficulty urinating, dysuria, urinary frequency or urinary incontinence Musculoskeletal Musculoskeletal: Reports systems reviewed and no addt'l complaints, except as documented Integumentary Integumentary: Reports systems reviewed and no addt'l complaints, except as documented Neurologic Neurologic: Reports systems reviewed and no addt'l complaints, except as documented; Denies abnormal speech, dizziness or headache(s) Psychiatric Psychiatric: Reports systems reviewed and no addt'l complaints, except as documented Endocrine Endocrinology: Reports systems reviewed and no addt'l complaints, except as documented Hematologic/Lymphatic Hematologic/Lymphatic: Reports systems reviewed and no addt'l complaints, except as documented Physical Exam Const alert, oriented x3 and no apparent distress Neck full ROM Resp normal respiratory effort, normal air movement and no retractions Effort and Inspection: able to speak in complete sentences and symmetric chest movement GI soft to palpation Bladder / Kidney Exam: bladder normal to palpation Uterus Palpation: uterus fundus firm Extremity normal to inspection and full ROM Psych mental status grossly normal, thought process normal and cooperative Assessment & Plan (1) Vaginal delivery: COMMENT: KW IOL oligo 39.1 Boy PLAN: s/p PPD # 1 1. routine post delivery care 2. breast feeding- support given 3. rh positive 4. rubella immune (2) Oligohydramnios: COMMENT: to for IOL (3) Uterine size date discrepancy : COMMENT: growth US-42% (4) Tetanus, diphtheria, and acellular pertussis (Tdap) vaccination declined: (5) Abnormal glucose complicating childbirth: COMMENT: 3 hr GTT normal (6) Supervision of high risk , antepartum: COMMENT: PRR NOAH: 01/22/23, Lyndsey metz (7) : QUALIFIERS: Weeks of gestation: 39 weeks Qualified Code(s): Z3A.39 - 39 weeks gestation of COMMENT: GBS neg, afp neg, anatomy nl, NIPT low risk, carrier scrn neg. 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
[2023-01-17] MEDS: Ibuprofen 600 MG Tablet PO ×3 (04:39→18:04)
[2023-01-17] MEDS: Acetaminophen 500 MG Tablet 1000 MG PO ×2 (11:24→18:04)
[2023-01-18] MEDS: Ibuprofen 600 MG Tablet PO ×2 (00:24→06:26)
[2023-01-18] MEDS: Acetaminophen 500 MG Tablet 1000 MG PO ×2 (00:24→06:27)
[2023-01-18 02:33] VITALS: BP 123/82; PULSE 109; RESP 16; TEMP 36.3; O2SAT 97
--- NOTE | 2023-01-18 06:23 | PN.OBGYN_ITS ---
Subjective Subjective Patient doing well without complaints. Tolerating PO. Ambulating and voiding without difficulty. Feeding well. Denies chest pain, shortness of breath, calf pain/swelling, fevers, chills, lightheadedness. Objective Data Objective Data Vital Signs: Vital Signs Temp Pulse Resp BP Pulse Ox O2 Del Method 97.3 F L 109 H 16 123/82 H 97 Room Air 01/18/23 02:33 01/18/23 02:33 01/18/23 02:33 01/18/23 02:33 01/18/23 02:33 01/18/23 02:33 Oxygen Delivery Method Room Air Weight: 133 lb 2 oz Body Mass Index (BMI) 20.8 Intake & Output: Intake and Output for Last 24 Hours 01/16/23 01/17/23 01/18/23 23:59 23:59 23:59 Intake Total 1478.41 / 1478.41 250 / 250 Output Total 350 / 350 1300 / 1300 Balance 1128.41 / 1128.41 -1050 / -1050 Lab / Micro Data Attestation: I reviewed the patient's lab results. 01/16/23 12:15 Radiography Diagnostic Testing: Radiology Impression Obstetrics Ultrasound 01/16/23 09:02 IMPRESSION: 1. Slightly low amount of amniotic fluid with an JOSE of 6.8 cm Electronically Signed: Phil Butterfield MD at 13:39 EDT Reading Location ID and State: [address] [place] [address] , Service support , ROS Constitutional Constitutional: Reports systems reviewed and no addt'l complaints, except as documented; Denies anorexia or headache(s) Cardiovascular Cardiovascular: Reports systems reviewed and no addt'l complaints, except as documented; Denies dizziness, dyspnea, nausea or tachypnea Respiratory/Chest Respiratory/Chest: Reports systems reviewed and no addt'l complaints, except as documented; Denies cough, dyspnea, shortness of breath at rest or tachypnea Gastrointestinal Gastrointestinal: Reports systems reviewed and no addt'l complaints, except as documented; Denies abdominal pain, constipation or nausea Genitourinary Genitourinary: Reports systems reviewed and no addt'l complaints, except as documented; Denies burning urination, difficulty urinating, dysuria, urinary frequency or urinary incontinence Musculoskeletal Musculoskeletal: Reports systems reviewed and no addt'l complaints, except as d ocumented Integumentary Integumentary: Reports systems reviewed and no addt'l complaints, except as documented Neurologic Neurologic: Reports systems reviewed and no addt'l complaints, except as documen joshua; Denies abnormal speech, dizziness or headache(s) Psychiatric Psychiatric: Reports systems reviewed and no addt'l complaints, except as documented Endocrine Endocrinology: Reports systems reviewed and no addt'l complaints, except as documented Hematologic/Lymphatic Hematologic/Lymphatic: Reports systems reviewed and no addt'l complaints, except as documented Physical Exam Const alert, oriented x3 and no apparent distress Neck full ROM Resp normal respiratory effort, normal air movement and no retractions Effort and Inspection: able to speak in complete sentences and symmetric chest movement GI soft to palpation Bladder / Kidney Exam: bladder normal to palpation Uterus Palpation: uterus fundus firm Extremity normal to inspection and full ROM Psych mental status grossly normal, thought process normal and cooperative Assessment & Plan (1) Vaginal delivery: COMMENT: KW IOL oligo 39.1 Boy PLAN: s/p PPD # 2 1. routine post delivery care 2. breast feeding- support given 3. rh positive 4. rubella immune Discharge Home (2) Oligohydramnios: COMMENT: to for IOL (3) Uterine size date discrepancy : COMMENT: growth US-42% (4) Tetanus, diphtheria, and acellular pertussis (Tdap) vaccination declined: (5) Abnormal glucose complicating childbirth: COMMENT: 3 hr GTT normal (6) Supervision of high risk , antepartum: COMMENT: PRR NOAH: 01/22/23, Lyndsey metz (7) : QUALIFIERS: Weeks of gestation: 39 weeks Qualified Code(s): Z3A .39 - 39 weeks gestation of COMMENT: GBS neg, afp neg, anatomy nl, NIPT low risk, carrier scrn neg. 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
--- NOTE | 2023-01-18 06:48 | DCINST_ITS ---
Discharge Instructions Diet Discharge Diet: No restrictions Activity Discharge Activity: Return to Normal Activity May resume sexual activity in: 6-8 weeks Dressing / Incision Call your doctor if you observe: Fever of 101 or Higher, Coldness, Increased Pain, Numbness or Tingling, Change in Color, Inability to urinate, Inability to have a bowel movement, Using more than 1 pad per hour, Shortness of breath, Dizziness, Fainting spells, Swelling in the ankles, Chest pain, Increased palpitations (irregular heartbeat), Calf discomfort and Uncontrolled pain Follow Up Care Please Follow Up With: Nicolasa Tran CNM When: Please call the office to schedule your follow up appointment in 6 weeks. If you had high blood pressure please call to schedule an appointment in 2 weeks. Test Results: Test results from this visit will be discussed in further detail at your follow- up appointment, if applicable. Discharge Plan Admission Admit Date/Time: 01/16/23 11:30 Attending Provider: Nicolasa Tran Primary Care Provider: Care Physician,Eleanor Primary Discharge Orders/Prescriptions Prescriptions: New ibuprofen 600 mg tablet 600 mg PO Q6H PRN PRN (Reason: fever or pain) Qty: 30 0RF docusate sodium [Colace] 100 mg capsule 100 mg PO BID Qty: 30 0RF No Action albuterol sulfate 2.5 mg /3 mL (0.083 %) solution for nebulization 2.5 mg continuous nebulization ONCE Qty: 1 0RF Patient Comments: taking PRN for seasonal allergies DHA 200 mg capsule PO famotidine [Pepcid] 20 mg tablet 40 mg PO DAILY Referrals / Follow Up: Care Physician,No Primary [Primary Care Provider] - Disposition Disposition (needs filled in before D/C Order can be placed): Home, Self Care
[2023-01-18 08:43] VITALS: BP 114/73; PULSE 88; PULSE 92; O2SAT 97
[2023-01-18 08:45] VITALS: BP 114/73; PULSE 90; RESP 14; TEMP 36.1; O2SAT 98
[2023-01-18] MEDS: Influenza Virus Vac Quad 23-24 60 MCG/0.5 ML SYRINGE IM (08:49)
== END 2023-01-18 12:10 | disposition home or self-care (01) | DRG 560 ==
LOC: WP 11:34
PROVIDERS: Admitting Provider Advanced Practice Midwife; Referring Provider Advanced Practice Midwife; Visit Provider Advanced Practice Midwife
DX: O41.03X0 Oligohydramnios, third trimester, not applicable or unspecified (principal); Z37.0 Single live birth; K21.9 Gastro-esophageal reflux disease without esophagitis; N89.8 Other specified noninflammatory disorders of vagina; O99.62 Diseases of the digestive system complicating childbirth; O26.843 Uterine size-date discrepancy, third trimester; Z87.891 Personal history of nicotine dependence; O47.9 False labor, unspecified; O99.619 Diseases of the digestive system complicating pregnancy, unspecified trimester; O99.891 Other specified diseases and conditions complicating pregnancy; Z3A.39 39 weeks gestation of pregnancy; O70.0 First degree perineal laceration during delivery
CPT/HCPCS: 59025; 59050; 76816; 85025; 86780; 86850; 86900; 86901; 99221; J7120; 90686; G0378

== ENCOUNTER 2023-11-23 14:43 | Emergency (ER) | payer MEDICAID, SELFPAY ==
[2023-11-23 14:44] VITALS: BP 120/91; PULSE 86; RESP 16; TEMP 36.3; O2SAT 100; BMI 15.4
--- NOTE | 2023-11-23 15:05 | EKG12_ITS ---
Test Reason : CP Blood Pressure : / mmHG Vent. Rate : 070 BPM Atrial Rate : 070 BPM P-R Int : 114 ms QRS Dur : 076 ms QT Int : 376 ms P-R-T Axes : 070 085 066 degrees QTc Int : 406 ms Normal sinus rhythm Normal ECG Confirmed by TWIN LANGE, RUI ([id number]), assistant editor NANE MARIE BARTON ([id number]) on 11/27/2023 6:28:28 AM Referred By: Confirmed By:SHUN MURCIA MD
--- NOTE | 2023-11-23 15:10 | RAD_ITS ---
STUDY: X-RAY CHEST REASON FOR EXAM: Female, 23 years old. Chest pain TECHNIQUE: Single AP portable view of the chest. COMPARISON: Comparison is made with prior study November 20, 2003. FINDINGS: EKG electrodes are seen. Hyperinflation. The lungs are clear. There is no demonstrated pleural abnormality. Normal size heart. Normal mediastinum and brandon. Normal visualized pulmonary arteries. Normal visualized aortic arch and descending thoracic aorta. Normal visualized thoracic spine. Normal visualized ribs, clavicles, and shoulders. There is no demonstrated abnormality of the visualized soft tissue structures of the upper abdomen. RAD/Chest 1 View (Portable) IMPRESSION: Hyperinflation. The lungs are clear. Electronically Signed: Stephan Patel MD at 15:19 EDT ,
[2023-11-23 15:29] LABS: Absolute Lymphocyte Count 2.27 X10^3/uL (0.83-4.51); Absolute Neutrophil Count 4.2 X10^3/uL (2.0-7.7); Basophil# 0.06 X10^3/uL; Basophil% 0.8 % (0-1); Eosinophil# 0.42 X10^3/uL; Eosinophils% 5.7 % (0-5); Hematocrit 42.2 % (37-47); Hemoglobin 13.8 g/dL (12.0-15.0); Lymphocyte # 2.27 X10^3/ul (0.83-4.51); Lymphocyte % 30.6 % (19-41); Mean Corp Hgb Conc 32.7 g/dL (32-36); Mean Corpuscular Hgb 29.3 pg (27.0-32.0); Mean Corpuscular Volume 89.6 fL (81-99); Mean Platelet Vol. 12.4 fl (6.2-12.0); Monocyte# 0.46 X10^3/uL; Monocyte% 6.2 % (0-10); NRBC Flagged by Analyzer 0 % (0-5); Neutrophil # 4.17 X10^3/uL (2.7-7.7); Neutrophil % 56.3 % (47-70); Platelet Count 201 K/mm3 (150-450); RBC Distribution Width CV 13.4 % (11.6-14.6); RBC Distribution Width SD 44.6 fl (35.1-43.9); Red Blood Count 4.71 M/mm3 (4.2-5.4); White Blood Count 7.4 K/mm3 (4.4-11.0)
--- NOTE | 2023-11-23 15:47 | EDS_ITS ---
HPI History of Present Illness Chief Complaint: Chest Pain Informant: patient Onset/Context/Timing Onset: Today and Hours Timing: Continuous Location: Left Chest Current Severity: Mild Maximum Severity: Mild Worsened By: Nothing Relieved By: Nothing Associated Symptoms: Negative for Nausea, Vomiting, Diaphoresis, Dyspnea, Cough, Fever, Lightheadedness or Acid Reflux Narrative Narrative: 23-year-old female no seen past medical history. No prior history of DVT or PE or risk factors. She is not on control. Denies any recent travel surgery or immobilization. Says on Thursday she had 3 to 4 hours of chest pain that resolved. She is been feeling well and then it returned today the last several hours. At that particular makes it better or worse. She denies any cardiac history. Denies any recent exertional dyspnea or chest pain. No leg swelling or hemoptysis. Is not pleuritic. Of note her sister did have cardiac arrest at 29 and reportedly has a defibrillator. Prior Similar Symptoms: No Recent Illness/Hospitalization: No CVD Risk Factors: Negative for Hypertension, Diabetes, Hypercholesterolemia, Family History 1' </=55 or Smoking PE Risk Factors: Negative for Recent Travel/Surgery, Recent Immobilization, Prior DVT or PE, Cancer or OCP + Smoking + >/=35 TAD Risk Factors: Negative for Marfan's Syndrome or Hypertension [facility] Medical History Vaginal delivery Uterine contractions Vaginal discharge during False labor before 37 completed weeks of gestation Acid reflux Migraines Home Medications ?Medication ?Instructions ?Recorded ?Last Taken ?Type hydroxyzine HCl 10 mg tablet 10 mg PO TID PRN 11/23/23 Unknown History vortioxetine 10 mg tablet 10 mg PO DAILY 11/23/23 Unknown History (Trintellix) Allergy/AdvReac Type Severity Reaction Status Date / Time No Known Allergies Allergy Verified 11/23/23 14:46 Family History Mother Breast cancer, Onset Age: 36 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- [employer] current occupational exposures/hazards: No pets and animals: Yes ( doing litter box) pets and animals: cat(s) and dog(s) history of recent travel: No Smoking Status: Former smoker Electronic Cigarette Use: without nicotine alcohol intake: never substance use type: does not use well-balanced diet: daily or most days caffeine: No eating out: 1-3 times/week seatbelt use: always do you feel safe at home: Yes additional social history: -Sarbjit Father-Ezio ROS ROS ED ROS Narrative Chest pain. Constitutional Constitutional ED: Denies chills or fever(s) Eyes Eyes: Reports none ENT ENT ED: Denies ear pain Cardiovascular Cardiovascular: Reports as per HPI and chest pain; Denies palpitations or racing heartbeat Respiratory/Chest Respiratory/Chest: Denies cough, dyspnea or dyspnea on exertion Gastrointestinal Gastrointestinal: Denies abdominal pain Genitourinary Genitourinary ED: Denies dysuria or hematuria Musculoskeletal Musculoskeletal: Denies arthralgias Integumentary Denies abscess or Abrasions Neurologic Neurologic: Denies headache(s) Psychiatric Psychiatric: Denies anxiety Endocrine Endocrinology: Denies cold intolerance Hematologic/Lymphatic Hematologic/Lymphatic: Denies easy bleeding Allergic/Immunologic Allergic/Immunologic ED: Denies mouth swelling EXAM Physical Exam Narrative Exam Narrative: 23-year-old female no acute distress vital signs stable afebrile. Pulse ox 100% on room air no signs of hypoxia. Sitting upright in bed. H EENT exam unremarkable. Neck nontender. Lungs clear to auscultation bilaterally. Heart regular rhythm no murmur. Chest wall she does have reproducible chest wall pain left upper chest. There is no ecchymosis or bruising. No subcu air or crepitance. Abdomen soft nontender. Moving all 4 extremities. Calves are nontender without edema or cords. Equal symmetrical hamstring. Dorsi plantarflexion intact. Equal symmetrical radial pulses. Back nontender. Neurologically she is awake and alert no focal motor deficits. Const Vital Signs: 11/23/23 14:44 11/23/23 15:06 11/23/23 15:06 Temperature 97.4 F L Temperature Source Temporal Pulse Rate 86 Respiratory Rate 16 Respiratory Effort Normal Blood Pressure 120/91 H Blood Pressure Mean 100 Pulse Ox 100 Oxygen Delivery Method Room Air Room Air 11/23/23 16:06 11/23/23 17:05 11/23/23 18:00 Temperature Temperature Source Pulse Rate 90 79 83 Respiratory Rate 17 19 H 19 H Respiratory Effort Blood Pressure 120/74 122/68 H 117/67 Blood Pressure Mean 89 86 83 Pulse Ox 99 98 96 Oxygen Delivery Method Room Air Positive well nourished and well developed; Negative for obese, cachectic, contractures or unkempt General Appearance ED: well developed and NAD; Negative for unkempt, cachectic, contractures or pallor Nutritional Appearance: Negative for cachectic or obese HEENT Reports moist mucous membranes normocephalic and atraumatic; Negative for trauma or tenderness Eyes PERRL and EOMs intact bilaterally General Eye ED: Negative for pale conjunctiva or scleral icterus Neck no lymphadenopathy, supple and no JVD General: Negative for tenderness Chest Wall inspection of chest normal; Negative for palpation of chest normal Chest Narrative: Mild tenderness left chest. No ecchymosis or bruising or signs of trauma. Noted crepitance or subcu air. Chest: Negative for tenderness Resp normal respiratory effort and clear to auscultation bilaterally Effort and Inspection: Negative for respiratory distress Auscultation: Negative for rales, rhonchi, wheezes or diminished lung sounds Cardio regular rate, regular rhythm, S1 normal heart sound, S2 normal heart sound and no murmurs Rate: Negative for bradycardia or tachycardic Rhythm: Negative for abnormal rhythm Peripheral Pulses: pulses 2+ throughout GI normal to inspection, nondistended, normoactive bowel sounds, soft to palpation, non-tender, non-distended and no masses Back/Spine no CVA tenderness and no thoracic nor lumbar tenderness General Back: Negative for CVA tenderness Cervical Spine: Negative for cervical spine tenderness Extremity normal to inspection General Extremety ED: Negative for edema, pulses abnormal or tenderness General Extremity: Negative for edema or pulses abnormal Neuro oriented x3 and CN's II-XII intact bilaterally Sensorium / Orientation: awake, alert, oriented to person and oriented to place; Negative for oriented to time, confused or lethargic Motor Exam: strength 5/5 throughout Psych mental status grossly normal Appearance: Negative for unkempt Attitude: No agitated Mood & Affect: Negative for depressed, anxious or tearful Skin no rashes or lesions noted and no wounds General Skin Exam: Negative for jaundice or pallor Rashes: No rashes noted Trauma: Negative for abrasion or laceration Heart Score History: Slightly/Non-Suspicious ECG: Normal Age: </= 45 years Risk Factors: No Risk Factors Troponin: </= Normal Limit Score: 0 MDM MDM MDM Narrative Medical decision making narrative: 23-year-old female with nonexertional chest pain. She does have some reproducible component to it. No history of DVT or PE or risk factors. Cardiac workup will be done if negative should be discharged to home with musculoskeletal chest pain. Repeat exam patient doing well at 6:36 PM. We went over test results. She is comfortable being discharged home. Chest pain uncertain etiology. History & Record Review Discussion w/independent historian: Patient Additional record(s) reviewed:: Prior inpatient record, Prior outpatient record, Prior ED visit and Prior labs Lab Data Attestation: I reviewed the patient's lab results. Lab results narrative: CBC normal. White count 7. H&H 13 and 42. Platelets 201. Chest x-ray unremarkable. Chemistries gap 6. Normal BUN and creatinine. Glucose 86. Initial troponin less than three 2-hour troponin less than 3 also. Labs: Laboratory Results - last 24 hr 11/23/23 11/23/23 15:10 17:41 WBC 7.4 RBC 4.71 Hgb 13.8 Hct 42.2 MCV 89.6 MCH 29.3 MCHC 32.7 RDW Std Deviation 44.6 H RDW Coeff of Quan 13.4 Plt Count 201 MPV 12.4 H Immature Gran % (Auto) 0.400 Neut % (Auto) 56.3 Lymph % (Auto) 30.6 Labette % (Auto) 6.2 Eos % (Auto) 5.7 H Baso % (Auto) 0.8 Absolute Neuts (auto) 4.2 Absolute Lymphs (auto) 2.27 Nucleated RBC % 0 Sodium 138 Potassium 3.8 Chloride 107 Carbon Dioxide 25.0 Anion Gap 6 BUN 8 Creatinine 0.68 Estim Creat Clear Calc 89.98 Est GFR (MDRD) Af Amer 136 Est GFR (MDRD) Non-Af 112 BUN/Creatinine Ratio 11.7 Glucose 86 Calcium 8.8 Troponin I High Sens < 3 L < 3 L Radiography Chest X-Ray - ED: 1 View, Read by ED Physician, Read by Radiologist, Normal, Heart, Lungs, Mediastinum, Bony Structures and No Acute Disease Diagnostic Testing: Clinical Impression(s) from Imaging Studies Chest X-Ray 11/23/23 15:10 IMPRESSION: Hyperinflation. The lungs are clear. Electronically Signed: Stephan Patel MD at 15:19 EDT , Chest x-ray, portable, single view interpreted by myself shows normal cardiac silhouette. Normal mediastinum. Normal lung townsend. Interpreted both by myself and the radiologist. Rhythm Strip Rhythm Strip: Sinus Rhythm Rate: 70 Ectopy: None EKG Initial EKG: Attestation: I personally reviewed and interpreted this EKG as follows: Interpretation: Sinus Rhythm and No Acute Injury Pattern Comments: Normal sinus rhythm rate is 70 no acute signs of MA or ischemia. No pericarditis. No S1Q3T3. Discharge Plan Triage Chief Complaint: Chest Pain ED Provider: Fabian Stringer Dx/Rx/DC Orders Clinical Impression: Chest pain Instructions: ED Chest Pain, Uncertain Cause Prescriptions: No Action hydroxyzine HCl 10 mg tablet 10 mg PO TID PRN Trintellix 10 mg tablet 10 mg PO DAILY Primary Care Provider: Care Physician,No Primary Referrals: Mickey Macias MD [Med Staff - Marketing And Promotions Manager] - As Needed Care Physician,No Primary [Primary Care Provider] - Activity Restrictions/Additional Instructions: All your tests look good. Lab work, heart enzymes, chest x-ray and EKG. Follow-up with your doctor as needed return if worse. Print Language: Rw[place]an Disposition Disposition: Home, Self Care
[2023-11-23 16:00] LABS: Anion Gap 6 (5-15); BUN 8 mg/dL (7-18); BUN/Creat Ratio 11.7 RATIO (10-20); Calcium,Total 8.8 mg/dL (8.5-10.1); Chloride 107 mmol/L (98-107); Creatinine, Serum 0.68 mg/dL (0.55-1.02); EST Glomerular Filtration Rate 112 mL/min (>60); Est Glom Filt Rate - Afr Amer 136 mL/min (>60); Estimated Creatinine Clearance 89.98 ml/min; Glucose 86 mg/dL (74-106); Potassium 3.8 mmol/L (3.5-5.1); Sodium Level 138 mmol/L (136-145); Troponin-I HS (w/2H Reflex) < 3 pg/mL (3.0-54.0)
[2023-11-23 16:06] VITALS: BP 120/74; PULSE 90; RESP 17; O2SAT 99
[2023-11-23 17:05] VITALS: BP 122/68; PULSE 79; RESP 19; O2SAT 98
[2023-11-23 17:22] LABS: Reflex Troponin-HS? (from REC) Y
[2023-11-23 18:00] VITALS: BP 117/67; PULSE 83; RESP 19; O2SAT 96
[2023-11-23 18:11] LABS: Troponin-I HS < 3 pg/mL (3.0-54.0)
[2023-11-23 18:42] VITALS: BP 122/74; PULSE 78; RESP 16; TEMP 36.2; O2SAT 98
== END 2023-11-23 18:42 | disposition home or self-care (01) ==
PROVIDERS: Emergency Provider Emergency Medicine; Visit Provider Emergency Medicine
DX: R07.89 Other chest pain (principal); Z87.891 Personal history of nicotine dependence; K21.9 Gastro-esophageal reflux disease without esophagitis
CPT/HCPCS: 71045; 80048; 84484; 85025; 93005; 99284; A4216

== ENCOUNTER → 2024-03-08 | Outpatient (CLI) | payer MEDICAID, SELFPAY ==
[2024-03-08 16:47] LABS: Thyroid Stim Hormone (TSH) 0.718 uIU/mL (0.358-3.740)
[2024-03-10 06:10] LABS: PROLACTIN 19.6 ng/mL (4.8-33.4)
== END | disposition home or self-care (01) ==
LOC: BWCLAB 15:31
PROVIDERS: Referring Provider Advanced Practice Midwife; Visit Provider Advanced Practice Midwife
DX: N64.52 Nipple discharge (principal); Z11.3 Encounter for screening for infections with a predominantly sexual mode of transmission
CPT/HCPCS: 36415; 84146; 84443; 86695; 86696

== ENCOUNTER → 2024-05-12 | Outpatient (CLI) | payer MEDICAID, SELFPAY ==
[2024-05-12 17:42] LABS: Absolute Lymphocyte Count 2.05 X10^3/uL (0.83-4.51); Absolute Neutrophil Count 7.2 X10^3/uL (2.0-7.7); Basophil# 0.06 X10^3/uL; Basophil% 0.6 % (0-1); Eosinophil# 0.32 X10^3/uL; Eosinophils% 3.1 % (0-5); Hematocrit 41.6 % (37-47); Hemoglobin 13.8 g/dL (12.0-15.0); Lymphocyte # 2.05 X10^3/ul (0.83-4.51); Lymphocyte % 20.1 % (19-41); Mean Corp Hgb Conc 33.2 g/dL (32-36); Mean Corpuscular Hgb 30.9 pg (27.0-32.0); Mean Corpuscular Volume 93.3 fL (81-99); Mean Platelet Vol. 12.3 fl (6.2-12.0); Monocyte# 0.54 X10^3/uL; Monocyte% 5.3 % (0-10); NRBC Flagged by Analyzer 0 % (0-5); Neutrophil # 7.21 X10^3/uL (2.7-7.7); Neutrophil % 70.6 % (47-70); Platelet Count 231 K/mm3 (150-450); RBC Distribution Width CV 13.8 % (11.6-14.6); RBC Distribution Width SD 47.3 fl (35.1-43.9); Red Blood Count 4.46 M/mm3 (4.2-5.4); White Blood Count 10.2 K/mm3 (4.4-11.0)
[2024-05-12 18:19] LABS: Vitamin D,25 Hydroxy 34.2 ng/mL
[2024-05-12 18:32] LABS: ALB/GLOB Ratio 1.2 RATIO (0.9-2.4); AST(SGOT) 18 U/L (15-37); Alanine Aminotransfer ALT/SGPT 27 U/L (13-56); Alkaline Phosphatase 71 U/L (45-117); Anion Gap 9 (5-15); BUN 13 mg/dL (7-18); BUN/Creat Ratio 18.1 RATIO (10-20); Calcium,Total 9.2 mg/dL (8.5-10.1); Chloride 103 mmol/L (98-107); Creatinine, Serum 0.72 mg/dL (0.55-1.02); EST Glomerular Filtration Rate 105 mL/min (>60); Est Glom Filt Rate - Afr Amer 127 mL/min (>60); Globulin 3.4 g/dL (2.2-4.2); Glucose 73 mg/dL (74-106); Potassium 3.6 mmol/L (3.5-5.1); Protein, Total 7.4 g/dL (6.4-8.2); Sodium Level 136 mmol/L (136-145); Thyroid Stim Hormone (TSH) 0.713 uIU/mL (0.358-3.740)
== END | disposition home or self-care (01) ==
LOC: MFPLAB 15:41
PROVIDERS: PCP Family Medicine; Referring Provider Family Medicine; Visit Provider Family Medicine
DX: R53.83 Other fatigue (principal)
CPT/HCPCS: 36415; 80053; 82306; 84443; 85025

== ENCOUNTER → 2024-05-16 | Outpatient (CLI) | payer MEDICAID, SELFPAY ==
[2024-05-16 12:09] LABS: Hemoglobin A1c 5.2 % (3.8-5.6)
[2024-05-17 04:06] LABS: Insulin Level 4.5 uIU/mL (2.6-24.9)
== END | disposition home or self-care (01) ==
LOC: MFPLAB 08:18
PROVIDERS: PCP Family Medicine; Referring Provider Family Medicine; Visit Provider Family Medicine
DX: R51.9 Headache, unspecified (principal)
CPT/HCPCS: 36415; 83036; 83525

== ENCOUNTER → 2024-06-30 | Outpatient (CLI) | payer MEDICAID, SELFPAY ==
--- NOTE | 2024-06-30 14:57 | RAD_ITS ---
EXAM: Foot minimum three views CLINICAL HISTORY: Pain COMPARISON: None available TECHNIQUE: Three views left foot FINDINGS: The 3rd through 5th DIP joints are plantar flexed and toes are overlapped on the lateral view limiting the evaluation. Bipartite appearance of the 1st metatarsal medial sesamoid can be seen with fracture or developmental variant. May correlate for focal tenderness. Visualized osseous structures and joint spaces otherwise appear within limits. Soft tissues appear within limits. RAD/Foot min 3 Views IMPRESSION: Bipartite appearance of the 1st metatarsal medial sesamoid can be seen with fra cture or developmental variant. May correlate for focal tenderness. Reading Location: [id number]
--- NOTE | 2024-06-30 14:57 | RAD_ITS ---
EXAM: Tibia and fibula two views CLINICAL HISTORY: Pain COMPARISON: None available TECHNIQUE: Two views left tibia and fibula FINDINGS: No fracture. Visualized osseous structures and soft tissues appear within limits. RAD/Tibia & Fibula 2 Views IMPRESSION: Study appears within limits. Reading Location: [id number]
--- NOTE | 2024-06-30 14:57 | RAD_ITS ---
EXAM: Ankle minimum three views CLINICAL HISTORY: Foot pain COMPARISON: None available TECHNIQUE: Three views left ankle FINDINGS: No fracture or dislocation. The joint spaces appear within limits. Visualized osseous structures appear within limits. Visualized soft tissues appear within limits. RAD/Ankle min 3 Views IMPRESSION: Study appears within limits. Reading Location: [id number]
== END | disposition home or self-care (01) ==
LOC: MTRAD 14:57
PROVIDERS: PCP Family Medicine; Referring Provider Nurse Practitioner Family; Visit Provider Nurse Practitioner Family
DX: M79.605 Pain in left leg (principal); M79.672 Pain in left foot
CPT/HCPCS: 73590; 73610; 73630

== ENCOUNTER → 2024-07-20 | Outpatient (CLI) | payer MEDICAID, SELFPAY ==
--- NOTE | 2024-07-20 08:59 | BI_ITS ---
EXAM: SCRN MAMM (CAD)W/LEE BILAT 07/20/2024 CLINICAL HISTORY: F, Age 24 y/o , ROUTINE SCREENING. Strong family history of breast cancer, in her mother at age 34, and paternal grandmother at age 60 and a maternal great aunt at 50. TECHNIQUE: Bilateral screening digital breast tomosynthesis with 2D and 3D images. Computer aided detection. COMPARISON: Baseline examination, no priors. FINDINGS: TISSUE DENSITY: The breast tissue is extremely dense which lowers the sensitivity of mammography. The mammogram demonstrates that the patient has dense breasts. Supplemental screening with whole breast ultrasound or MRI may be considered for further evaluation. Bilateral Breast Mammographic Findings: No significant masses, calcifications or other abnormalities are identified. BI/SCRN MAMM (CAD)W/LEE BILAT IMPRESSION: Right Breast: BIRADS 1 NEGATIVE. Left Breast: BIRADS 1 NEGATIVE. OVERALL FINAL ASSESSMENT: BIRADS 1 NEGATIVE. RECOMMENDATION: Routine annual follow-up in 1 Year A letter with findings and recommendations will be mailed to the patient. Reading Location: [id number]
== END | disposition home or self-care (01) ==
LOC: OPBI 08:58
PROVIDERS: PCP Family Medicine; Referring Provider Family Medicine; Visit Provider Family Medicine
DX: Z12.31 Encounter for screening mammogram for malignant neoplasm of breast (principal)
CPT/HCPCS: 77063; 77067

== ENCOUNTER → 2024-07-28 | Outpatient (CLI) | payer MEDICAID, SELFPAY ==
--- NOTE | 2024-07-28 14:28 | RAD_ITS ---
PROCEDURE: ANKLE MIN 3 VIEWS 07/28/2024 REASON FOR EXAM: PAIN TECHNIQUE: 3 views of the left ankle COMPARISON: 06/30/2024 FINDINGS: See impression RAD/Ankle min 3 Views IMPRESSION: Negative for acute fracture or malalignment. Soft tissues are within normal li mits. Reading Location: [facility]
== END | disposition home or self-care (01) ==
LOC: MTRAD 14:27
PROVIDERS: PCP Family Medicine
DX: M25.572 Pain in left ankle and joints of left foot (principal)
CPT/HCPCS: 73610

== ENCOUNTER → 2024-10-11 | Outpatient (CLI) | payer MEDICAID, SELFPAY | END | disposition home or self-care (01) | LOC: MFPLAB 14:32 | PROVIDERS: PCP Family Medicine; Referring Provider Family Medicine; Visit Provider Family Medicine | DX: Z91.013 Allergy to seafood (principal) | CPT/HCPCS: 36415; 82785 ==

== ENCOUNTER → 2025-02-09 | Outpatient (CLI) | payer MEDICAID, SELFPAY ==
--- NOTE | 2025-02-09 10:30 | RAD_ITS ---
PROCEDURE: RAD/Chest PA and Lateral
== END | disposition home or self-care (01) ==
LOC: MTRAD 10:30
PROVIDERS: PCP Family Medicine; Referring Provider Physician Assistant Surgical; Visit Provider Physician Assistant Surgical
DX: R05.9 Cough, unspecified (principal)
CPT/HCPCS: 71046